=== PATIENT | male | born 1990 ===

== ENCOUNTER 2018-09-13 03:53 | Emergency (ER) | payer SELFPAY ==
[2018-09-13 04:18] VITALS: BP 145/89; PULSE 120; RESP 20; TEMP 99; O2SAT 99
--- NOTE | 2018-09-13 04:19 | C.PDOC ---
History Of Present Illness 28 year old male presents to the ED c/o laceration to his inner left upper lip s/p falling and hitting his face today. Patient does not share how the injury occurred. Patient denies LOC, headache, visual changes, nausea, vomit, weakness, numbness, other injury, fall, trauma. Time Seen by Provider: 09/13/18 04:06 Chief Complaint (Nursing): Abnormal Skin Integrity History Per: Patient History/Exam Limitations: no limitations Onset/Duration Of Symptoms: Hrs Current Symptoms Are (Timing): Still Present Location Of Injury: Left: Mouth (inner upper lip) Quality Of Symptoms: Painful Recent travel outside of the [place]: No Additional History Per: Patient Past Medical History Reviewed: Historical Data, Nursing Documentation, Vital Signs - Medical History PMH: No Chronic Diseases Surgical History: No Surg Hx Family History: States: Unknown Family Hx - Social History Hx Tobacco Use: No Hx Alcohol Use: No Hx Substance Use: No Review Of Systems Constitutional: Negative for: Fever, Chills ENT: Positive for: Mouth Pain, Mouth Swelling. Negative for: Nose Discharge, Nose Congestion Cardiovascular: Negative for: Chest Pain Respiratory: Negative for: Cough, Shortness of Breath Gastrointestinal: Negative for: Nausea, Vomiting, Abdominal Pain Musculoskeletal: Negative for: Neck Pain Skin: Positive for: Other (laceration) Neurological: Negative for: Weakness, Numbness, Headache, Dizziness Physical Exam - Physical Exam Appears: Non-toxic, No Acute Distress Skin: Normal Color, Warm, Dry Head: Atraumatic, Normacephalic Eye(s): bilateral: Normal Inspection, PERRL, EOMI Nose: No Discharge Oral Mucosa: Moist Tongue: No Laceration Lips: Swelling (mild left upper lip), Laceration (1 cm inner left upper lip. No through and through communication) Teeth: No Tender To Palpation, No Loose Gingiva: No Bleeding Neck: Normal ROM, No Midline Cervical Tenderness, Supple Chest: Symmetrical Cardiovascular: Rhythm Regular Respiratory: Normal Breath Sounds, No Rales, No Rhonchi, No Wheezing Gastrointestinal/Abdominal: Soft, No Tenderness, No Guarding, No Rebound Extremity: Normal ROM, No Tenderness, No Swelling Neurological/Psych: Oriented x3, Normal Speech, Normal Cognition Gait: Steady ED Course And Treatment O2 Sat by Pulse Oximetry: 99 (ON RA) Pulse Ox Interpretation: Normal Medical Decision Making Medical Decision Making: Laceration does not need primary closure at this time, there is no active bleeding. Patient needs only antibiotic prophylaxis Disposition Counseled Patient/Family Regarding: Diagnosis, Need For Followup, Rx Given - Disposition Referrals: [facility] [Outside] Disposition: HOME/ ROUTINE Disposition Time: 04:17 Condition: STABLE Additional Instructions: SOM NEAL, thank you for letting us take care of you today. Your provider was Melani Tovar MD and you were treated for LACERATION. The emergency medical care you received today was directed at your acute symptoms. If you were prescribed any medication, please fill it and take as directed. It may take several days for your symptoms to resolve. Return to the Emergency Department if your symptoms worsen, do not improve, or if you have any other problems. Please contact your doctor or call one of the physicians/clinics you have been referred to that are listed on the Patient Visit Information form that is included in your discharge packet. Bring any paperwork you were given at discharge with you along with any medications you are taking to your follow up visit. Our treatment cannot replace ongoing medical care by a primary care provider outside of the emergency department. Thank you for allowing the [facility] team to be part of your care today. Prescriptions: Amoxicillin 500 mg PO TID #15 tablet Instructions: Wound Care (DC) Forms: [employer] ([place]), General Discharge Instructions - Clinical Impression Clinical Impression: Laceration of internal mouth - PA / [employer] / Resident Statement MD/DO has reviewed & agrees with the documentation as recorded. - Scribe Statement The provider has reviewed the documentation as recorded by the Scribe Ten [place]with All medical record entries made by the Scribe were at my direction and personally dictated by me. I have reviewed the chart and agree that the record accurately reflects my personal performance of the history, physical exam, medical decision making, and the department course for this patient. I have also personally directed, reviewed, and agree with the discharge instructions and disposition.
== END 2018-09-13 04:41 | disposition home or self-care (01) ==
LOC: C.ER 03:53
DX: S01.512A Laceration without foreign body of oral cavity, initial encounter (principal); W18.30XA Fall on same level, unspecified, initial encounter